=== PATIENT | male | born 1965 | race Caucasian/White ===

== ENCOUNTER 2019-09-24 13:55 | Day surgery (SDC) | payer MEDICARE, OTHER ==
[2019-09-20 15:16] VITALS: BMI 27.6
[~2019-09-24 13:55] MED LIST: LACTATED RINGERS 1,000 ML IV SCH; LIDOCAINE 1% 20 ML VIAL (10MG/ML) FOR IV START INTRADERMA PRN
[2019-09-24 14:18] VITALS: TEMP 97.6
[2019-09-24] MEDS ORDERED: LIDOCAINE 1% INJ 10MG/ML (20 ML MDV) ONE (15:04)
[2019-09-24] MEDS ORDERED: PROPOFOL 10 MG/ML 20 ML VIAL IV ONE (15:04)
--- NOTE | 2019-09-24 15:29 | P.PCN ---
Date of Procedure: 09/24/19 Description of Procedure: BRIEF HISTORY: Patient is a [id number]-year-old, pleasant, presenting for outpatient EGD for evaluation of epigastric abdominal pain. Patient was seen in the outpatient clinic where he had medications titrated. Overall reports feeling somewhat better. PROCEDURE PERFORMED: Esophagogastroduodenoscopy with biopsy. PREOPERATIVE DIAGNOSIS: Epigastric abdominal pain. ESTIMATED BLOOD LOSS: Minimal. IV sedation per anesthesia. PROCEDURE: After informed consent was obtained, the patient was brought into the endoscopy unit. IV sedation was administered by Anesthesia under continuous monitoring. Initially the Olympus GIF-190 video endoscope was inserted into the mouth. Esophagus intubated without any difficulty. It was gradually advanced into the stomach and duodenum and carefully examined. The bulb and the second part of the duodenum appeared normal, with biopsies taken. The scope at this time was withdrawn to the stomach, adequately insufflated with air, and upon careful examination, mucosa of the antrum, body, cardia and the fundus appeared normal, except for some mild scattered erythema in the antrum and body suggestive of mild gastritis with biopsies taken. The scope was then withdrawn into the esophagus. The GE junction was located at 39 cm from the incisors with a widely patent Schatzki's ring proximal to the GE junction and the GE junction biopsied. The esophagus appeared normal, with metastatic esophageal biopsies taken. There were no erosions or ulcerations seen and the patient tolerated the procedure well. IMPRESSION: 1. Mild gastritis antrum and body, biopsied. 2. Widely patent nonobstructing Schatzki's ring in the distal esophagus. 3. Biopsies of the duodenum, GE junction and mid esophagus. RECOMMENDATIONS: The findings of this examination were discussed with the patient and his mother. Okay to resume diet. Continue current medical management. We pathology from biopsies. Follow up in the gastroenterology clinic as previously scheduled.
[2019-09-24 15:31] VITALS: RESP 16
[2019-09-24 15:40] VITALS: BP 118/82; PULSE 80
== END 2019-09-24 15:58 | disposition home or self-care (01) ==
LOC: ORWHC2ENDO 13:55
PROVIDERS: ATTEND Internal Medicine
DX: K29.50 Unspecified chronic gastritis without bleeding (principal); I51.89 Other ill-defined heart diseases; K22.2 Esophageal obstruction; E78.5 Hyperlipidemia, unspecified; J45.909 Unspecified asthma, uncomplicated; R56.9 Unspecified convulsions; K21.9 Gastro-esophageal reflux disease without esophagitis; M79.7 Fibromyalgia; Z79.899 Other long term (current) drug therapy; Z98.890 Other specified postprocedural states; Z88.0 Allergy status to penicillin; Z91.012 Allergy to eggs; Z80.49 Family history of malignant neoplasm of other genital organs
CPT/HCPCS: 88305; 43239; J2001; J2704

== ENCOUNTER → 2020-11-13 | Outpatient (CLI) | payer MEDICARE, OTHER | END | disposition home or self-care (01) | LOC: LABWHC1 14:12 | PROVIDERS: ATTEND Psychiatry & Neurology Neurology | DX: G40.209 Localization-related (focal) (partial) symptomatic epilepsy and epileptic syndromes with complex partial seizures, not intractable, without status epilepticus (principal) | CPT/HCPCS: 36415; 80156; 80177 ==

== ENCOUNTER → 2021-02-01 | Outpatient (CLI) | payer MEDICARE, OTHER | END | disposition home or self-care (01) | LOC: LABWHC1 15:41 | PROVIDERS: ATTEND Family Medicine | DX: Z20.822 Contact with and (suspected) exposure to COVID-19 (principal) | CPT/HCPCS: U0003; C9803 ==

== ENCOUNTER → 2024-04-10 | Outpatient (CLI) | payer MEDICARE, OTHER ==
--- NOTE | 2024-04-10 18:43 | MR ---
EXAMINATION TYPE: MR brain wo con DATE OF EXAM: 04/10/2024 COMPARISON: None HISTORY: Dizziness, Ringing in ears bilateral, Seizures since a child, less events since on meds, for getful CONTRAST: Performed utilizing 0 mL intravenous Gadavist gadolinium contrast. TECHNIQUE: Multiplanar, multiecho imaging on a 3.0 Breana magnet is performed through the brain. Stud y is performed within 24 hours of arrival to the hospital. Some susceptibility artifact is left siva bular region causing mild limitation. The craniovertebral junction is normal. The pituitary is normal. Diffusion-weighted imaging is performed. No abnormal hyperintensity is present to suggest an acute i ntracranial infarct or acute ischemic change. Signal within the brain appears unremarkable. Minimal diffuse periventricular white matter hyperinten sity is present likely on the basis of chronic white matter ischemic changes Ventricles and sulci are appropriate for the patient age. IMPRESSION: 1. Minimal periventricular white matter ischemic-type changes. 2. No acute intracranial process.
== END | disposition home or self-care (01) ==
LOC: RADMRIMAIN 13:57
PROVIDERS: ATTEND Psychiatry & Neurology Neurology
DX: G40.802 Other epilepsy, not intractable, without status epilepticus (principal); F70 Mild intellectual disabilities; G25.0 Essential tremor; I67.82 Cerebral ischemia
CPT/HCPCS: 70551

== ENCOUNTER → 2024-08-01 | Outpatient (CLI) | payer MEDICARE, OTHER | END | disposition home or self-care (01) | LOC: LABWHC1 08:56 | PROVIDERS: ATTEND Psychiatry & Neurology Neurology | DX: G40.209 Localization-related (focal) (partial) symptomatic epilepsy and epileptic syndromes with complex partial seizures, not intractable, without status epilepticus (principal) | CPT/HCPCS: 36415; 80156 ==

== ENCOUNTER → 2024-12-09 | Outpatient (CLI) | payer MEDICARE, OTHER ==
[2024-12-09 15:23] LABS: Platelet Count 220 X 10*3/uL (140-440)
[2024-12-09 18:43] LABS: Carbamazepine (Tegretol) 8.7 UG/ML (4.0-12.0); Valproic Acid (Depakene) 57.3 UG/ML (50.0-100.0)
== END | disposition home or self-care (01) ==
LOC: LABWHC1 08:49
PROVIDERS: ATTEND Psychiatry & Neurology Neurology
DX: G40.802 Other epilepsy, not intractable, without status epilepticus (principal)
CPT/HCPCS: 36415; 80156; 80164; 80177; 84450; 84460; 85049

== ENCOUNTER 2025-03-18 08:31 | Day surgery (SDC) | payer MEDICARE, OTHER ==
[2025-03-17 10:56] VITALS: BMI 26.6
[~2025-03-18 08:31] MED LIST changes: -LACTATED RINGERS 1,000 ML IV SCH; +LIDOCAINE 1% (10MG/ML) FOR IV START INTRADERMA PRN; -LIDOCAINE 1% 20 ML VIAL (10MG/ML) FOR IV START INTRADERMA PRN
[2025-03-18 08:54] VITALS: RESP 16; TEMP 97.1
[2025-03-18] MEDS: IV FLUID CONTINUATION 1,000 ML IV ONE (08:56)
[2025-03-18] MEDS: LACTATED RINGERS 1,000 ML IV SCH (09:10)
[2025-03-18] MEDS ORDERED: PROPOFOL 10 MG/ML 20 ML VIAL IV ONE (09:48)
--- NOTE | 2025-03-18 10:02 | P.PCN ---
Date of Procedure: 03/18/25 Procedure(s) Performed: BRIEF HISTORY: Patient is a 59-year-old pleasant white male scheduled for an elective colonoscopy as a part of screening for colon cancer. PROCEDURE PERFORMED: Colonoscopy with snare polypectomy. PREOPERATIVE DIAGNOSIS: Screening for colon cancer. IV sedation per Anesthesia. PROCEDURE: After informed consent was obtained, the patient, was brought into the endoscopy unit. IV sedation was administered by Anesthesia under continuous monitoring. Digital rectal examination was normal. Initially the Olympus CF-160 flexible video colonoscope was then inserted in the rectum, gradually advanced into the cecum without any difficulty. Careful examination was performed as the scope was gradually being withdrawn. Ileocecal valve and the appendiceal orifice were visualized and appeared normal. Prep was excellent. Mucosa of the cecum appeared normal. In the ascending colon there was a 7 mm polyp that was removed by cold snare polypectomy. Rest of the, ascending colon, transverse colon, descending colon, sigmoid colon, and rectum appeared normal. Katter sigmoid diverticulosis. Retroflexion was performed in the rectum and no lesions were seen. The patient tolerated the procedure well. IMPRESSION: 7 mm ascending colon polyp status post cold snare polypectomy Scattered sigmoid diverticulosis. RECOMMENDATIONS: Findings of this examination were discussed with the patient as well as his family. He was advised to follow with the biopsy results. If the biopsy reveals adenoma he can have repeat colonoscopy in 5 years.
[2025-03-18 10:32] VITALS: BP 119/82; PULSE 61
== END 2025-03-18 10:53 | disposition home or self-care (01) ==
LOC: ORWHC2ENDO 08:31
PROVIDERS: ATTEND Internal Medicine Gastroenterology
DX: Z12.11 Encounter for screening for malignant neoplasm of colon (principal); K57.30 Diverticulosis of large intestine without perforation or abscess without bleeding; J45.909 Unspecified asthma, uncomplicated; M79.7 Fibromyalgia; K21.9 Gastro-esophageal reflux disease without esophagitis; G40.909 Epilepsy, unspecified, not intractable, without status epilepticus; F17.200 Nicotine dependence, unspecified, uncomplicated; Z79.51 Long term (current) use of inhaled steroids; Z79.899 Other long term (current) drug therapy; Z88.0 Allergy status to penicillin; Z91.012 Allergy to eggs
CPT/HCPCS: 88305; 45385; J2704